=== PATIENT | female | born 1950 | race Caucasian/White ===

== ENCOUNTER 2020-05-07 12:38 | Emergency (ER) | payer MEDICARE, BC ==
[~2020-05-07] VITALS: Ht 160 cm; Wt 59.0 kg
--- NOTE | 2020-05-07 13:55 | NUR ---
Patient discharged to home in stable condition. Written and verbal after care instructions given. Patient verbalizes understanding of instructions. Stressed follow up or return to ER for worsening s/s.
== END 2020-05-07 13:57 | disposition home or self-care (01) ==
LOC: ER 12:38
DX: M13.132 Monoarthritis, not elsewhere classified, left wrist (principal)
CPT/HCPCS: 73110; A4663